=== PATIENT | male | born 1985 | race Caucasian/White ===

== ENCOUNTER 2024-09-21 12:31 | Emergency (ER) | payer SELFPAY ==
[2024-09-21] VITALS (7 sets, daily range): BP systolic 149–197; BP diastolic 87–120; BMI 47.2
--- NOTE | 2024-09-21 14:27 | ED.GENMED ---
History of Present Illness
<Girish Ochoa PA-C - Last Filed: 09/21/24 18:18>
General
Chief Complaint: Musculo-Skeletal Complaint
Time Seen by Provider: 09/21/24 12:54
History of Present Illness
History of Present Illness:
39-year-old male presents to the emergency department for evaluation of a suspected left shoulder dislocation. States he was attempting to lift a water heater at work when he felt discomfort in the shoulder, attempted to stretch when he felt sudden
pain and is now unable to move the shoulder. No prior history of dislocation
Review of Systems
<Girish Ochoa PA-C - Last Filed: 09/21/24 18:18>
Review of Systems
Allergies reviewed?: Yes
All Other Systems: ROS reviewed and negative except as documented in HPI and ROS
Phy Exam
<Girish Ochoa PA-C - Last Filed: 09/21/24 18:18>
Physical Exam
Physical Exam:
GEN: Well appearing, NAD, WDWN
HEENT: Oral mucosa moist, no scleral icterus
Cardiac: Regular rate
Lung: No respiratory distress, no tachypnea
MSK: Arm held in shoulder adduction elbow flexion, palpable sulcus to the deltoid
Skin: Good color, no pallor or jaundice, no rashes
Neuro: AO x3, moves all extremities freely
Psych: Calm, cooperative
Course
<Girish Ochoa PA-C - Last Filed: 09/21/24 18:18>
Orders/Labs/Results
Orders:
Orders
09/21/24 12:36
Shoulder, Left, Trauma CR [CR Shoulder, Trauma - Left] Urgent
Comment:
Reason For Exam: injury, pain
09/21/24 13:30
Propofol [Diprivan] 20 ml .ROUTE .STK-MED
09/21/24 13:52
Propofol [Diprivan] 20 ml .ROUTE .STK-MED
09/21/24 13:54
CR Shoulder - Left 1 View Urgent
Comment:
Reason For Exam: shoulder reduction
Comment: portable
Vital Signs
Initial and Last Documented VS:
Initial Vital Signs
Pulse Resp BP Pulse Ox
73 18 197/106 100
09/21/24 12:34 09/21/24 12:34 09/21/24 12:34 09/21/24 12:34
Last Documented Vital Signs
Temp Pulse Resp BP Pulse Ox
98.5 F 78 20 158/88 98
09/21/24 14:30 09/21/24 14:30 09/21/24 14:30 09/21/24 14:30 09/21/24 14:30
<Jorje Murray, DO - Last Filed: 09/21/24 14:32>
Orders/Labs/Results
Orders:
Orders
09/21/24 12:36
Shoulder, Left, Trauma CR [CR Shoulder, Trauma - Left] Urgent
Comment:
Reason For Exam: injury, pain
09/21/24 13:30
Propofol [Diprivan] 20 ml .ROUTE .STK-MED
09/21/24 13:52
Propofol [Diprivan] 20 ml .ROUTE .STK-MED
09/21/24 13:54
CR Shoulder - Left 1 View Urgent
Comment:
Reason For Exam: shoulder reduction
Comment: portable
Vital Signs
Initial and Last Documented VS:
Initial Vital Signs
Pulse Resp BP Pulse Ox
73 18 197/106 100
09/21/24 12:34 09/21/24 12:34 09/21/24 12:34 09/21/24 12:34
Last Documented Vital Signs
Temp Pulse Resp BP Pulse Ox
98.5 F 78 20 158/88 98
09/21/24 14:30 09/21/24 14:30 09/21/24 14:30 09/21/24 14:30 09/21/24 14:30
Procedures
<Girish Ochoa PA-C - Last Filed: 09/21/24 18:18>
Moderate Sedation
ASA Risk Score: Class I
Chart and allergies reviewed: Yes
Consent for anesthesia obtained: Yes
Time out completed (validating right patient & procedure): Yes
Moderate Sedation Start Time(when first medication is given): 13:44
History of difficult intubation: No
Airway free of obstruction: Yes
Patient has a gag reflex: Yes
Patient is able to open mouth: Yes
Patient has no dentures: Yes
Patient has no loose teeth: Yes
Medication administered by Provider during Moderate Sedation: IV Propofol (mg)
Total dose administered: 220
Time drug administered: 13:44
Moderate Sedation Procedure End Time: 14:00
Joint/Fracture Reduction
Left Shoulder:
Indication for procedure:: L glenohumeral dislocation
Procedure completed by: Girish Ochoa PA-C, Jorje Murray DO
Consent form signed: Yes
Joint reduced: with anesthesia sedation
Injury was: closed
Further treatement: needs re-check only
Post reduction exam: stable
Capillary Refill: normal
Normal distal neurovascular exam?: Yes
<Girish Ochoa PA-C - Last Filed: 09/21/24 18:18>
MDM/Problems Addressed
MDM/Problems Addressed:
Initial reduction attempt without sedation was unsuccessful, patient subsequently sedated with propofol and reduction was successful. No evidence for Hill-Sachs lesion. Will refer to Ortho as an outpatient, supportive care discussed
<Girish Ochoa PA-C - Last Filed: 09/21/24 18:18>
*Critical Care Note
Total Time (30-74mins, 75-104mins- exclusive of procedures): Not Applicable
ED Attending Note
<Girish Ochoa PA-C - Last Filed: 09/21/24 18:18>
-
Portions of this chart may have been created with voice recognition software.� Occasional wrong word or��sound alike� substitutions may have occurred due to the inherent limitations of voice recognition software.
<Jorje Murray DO - Last Filed: 09/21/24 14:32>
ED Attending Note
Patient seen and examined by attending physician: Yes
I performed the substantive portion of visit, reviewed & personally made and approve the management plan that is documented in note by myself or BRITTA.: Yes
Discharge Plan
Departure
Patient Disposition: Home (Routine Discharge)
Date of Disposition: 09/21/24
Time of Disposition: 14:27
Patient with high blood pressure during this ER visit?: No
Discharge Problem:
Anterior dislocation of left shoulder
Instructions: Shoulder Dislocation (DC)
Referrals:
Jeff David MD [Active] -
Interventions
Interventions:
*Risk Screen - Suicide Last Done: 09/21/24 12:34
*General Assessment Last Done: 09/21/24 12:34
*Neglect/Abuse Screening Last Done: 09/21/24 12:34
ED- Fall Risk Assessment Last Done: 09/21/24 13:35
*ED COVID-19 Vaccine History Last Done: 09/21/24 13:35
*Nursing Disposition Last Done: 09/21/24 15:20
ED-Musculoskeletal Assessment Last Done: 09/21/24 13:35
Discharge Date and Time
Discharge Date/Time: 09/21/24 15:21
Print Language: BANGLADESHI
== END 2024-09-21 15:21 | disposition home or self-care (01) ==
LOC: EMR 12:31
PROVIDERS: EMERGENCY PHYSICIAN Emergency Medicine; FAMILY PHYSICIAN Family Medicine
DX: S43.015A Anterior dislocation of left humerus, initial encounter (principal); X58.XXXA Exposure to other specified factors, initial encounter
CPT/HCPCS: 99283; 23650; 73020; 73030